=== PATIENT | female | born 1950 | race Caucasian/White ===

== ENCOUNTER 2018-08-12 07:52 | Emergency (ER) | payer BC ==
[~2018-08-12] VITALS: Ht 162.6 cm; Wt 76.2 kg
[2018-08-12 08:01] VITALS: BP 158/75
[2018-08-12] MEDS ORDERED: ASPIR 8181 MG PO (08:03)
[2018-08-12] MEDS ORDERED: PROTONIX40 M1 PO (08:03)
[2018-08-12] MEDS ORDERED: SIMVASTATIN40 MG PO (08:04)
[2018-08-12] MEDS ORDERED: TOPROL XL25 MG PO (08:04)
[2018-08-12] MEDS ORDERED: METFORMIN HCL500 MG PO (08:04)
[2018-08-12] MEDS ORDERED: METHOTREXATE 22.5 MG PO (08:04)
[2018-08-12] MEDS ORDERED: CELEBREX 200 M200 M1 PO (08:04)
[2018-08-12] MEDS ORDERED: AMARYL2 MG PO (08:04)
[2018-08-12] MEDS ORDERED: SYNTHROID125 MC1 PO (08:05)
[2018-08-12] MEDS ORDERED: TRAZODONE HCL50 MG PO (08:05)
[2018-08-12] MEDS ORDERED: FOLIC ACID1 MG PO (08:05)
[2018-08-12] MEDS ORDERED: NORCO 5-325 TA1 EACH PO (08:20)
[2018-08-12] MEDS ORDERED: KEFLEX500 M1 PO (08:20)
== END 2018-08-12 08:32 | disposition home or self-care (01) ==
LOC: M.ERS 07:52
DX: L60.0 Ingrowing nail (principal); I10 Essential (primary) hypertension; E11.9 Type 2 diabetes mellitus without complications; M19.90 Unspecified osteoarthritis, unspecified site; Z96.653 Presence of artificial knee joint, bilateral; Z90.49 Acquired absence of other specified parts of digestive tract